=== PATIENT | female | born 1980 | race Caucasian/White ===

== ENCOUNTER 2018-10-26 16:40 | Emergency (ER) | payer OTHER ==
[~2018-10-26] VITALS: Ht 172.7 cm; Wt 59.0 kg
== END 2018-10-26 20:24 | disposition home or self-care (01) ==
LOC: ER 16:40
DX: J11.1 Influenza due to unidentified influenza virus with other respiratory manifestations (principal)

== ENCOUNTER 2018-11-15 10:33 | Outpatient (CLI) | payer OTHER | END 2018-11-15 10:43 | disposition home or self-care (01) | LOC: MAMO-SONO 10:33 | DX: N60.11 Diffuse cystic mastopathy of right breast (principal); N60.12 Diffuse cystic mastopathy of left breast; Z12.31 Encounter for screening mammogram for malignant neoplasm of breast ==

== ENCOUNTER 2020-07-22 13:42 | Outpatient (CLI) | payer OTHER | END 2020-07-22 14:04 | disposition home or self-care (01) | LOC: MAMO-SONO 13:42 | PROVIDERS: ATTEND Obstetrics & Gynecology Maternal & Fetal Medicine | DX: Z12.31 Encounter for screening mammogram for malignant neoplasm of breast (principal); N64.4 Mastodynia; N60.11 Diffuse cystic mastopathy of right breast ==